=== PATIENT | male | born 1985 | race Caucasian/White ===

== ENCOUNTER 2019-12-19 06:23 | Day surgery (SDC) | payer OTHER ==
[2019-12-18 12:22] LABS: HEMATOCRIT 41.7 % (42.0-54.0); MCH 29.2 pg (26.0-34.0); MCHC 33.6 g/dL (31.0-37.0); MCV 87.1 fL (80.0-100.0); RBC 4.79 10x6/uL (4.20-6.10)
[~2019-12-19] VITALS: Ht 177.8 cm; Wt 113.4 kg
[~2019-12-19 06:23] MED LIST: LOTREL 5-20 MG1 CAP PO
[2019-12-19 06:56] VITALS: BP 143/90; Ht 177.8 cm; Wt 113.4 kg
[2019-12-19] MEDS ORDERED: PERCOCET 10-321 EAC1 PO (09:16)
[2019-12-19] MEDS ORDERED: VISTARIL50 MG PO (09:16)
[2019-12-19] MEDS ORDERED: TORADOL10 MG PO (09:17)
--- NOTE | 2019-12-19 12:30 | NUR ---
1210 IV DC'D. CATHETER TIP INTACT. NO BLEEDING AT SITE. BANDAID APPLIED. PT VOICES UNDERSTANDING OF DISCHARGE INSTRUCTIONS.
--- NOTE | 2019-12-20 08:22 | OP ---
PATIENT NAME: MAN MURGUIA MEDICAL RECORD: [id number] :83 LOCATION:[facility] ADMISSION DATE: SURGEON: IGNACIO BUSTAMANTE DO DATE OF OPERATION: 12/19/2019 PROCEDURE PERFORMED: Left knee arthroscopy with partial medial meniscectomy and left tibial tubercle ossicle removal or excision and patellar tendon repair. PREOPERATIVE DIAGNOSES: Left knee medial meniscal tear and painful Montrose-Schlatter or tibial tubercle ossicle. POSTOPERATIVE DIAGNOSES: Left knee medial meniscal tear and painful Montrose-Schlatter or tibial tubercle ossicle. INDICATIONS: Mr. 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 He was tired of dealing with the pain and wants something done surgically. He got an MRI and a CT. He did have quite a painful ossicle. Upon palpation, it was mobile. We also got an MRI, which showed a partial patellar tendon tear at that site and a medial meniscal tear in the anterior horn of medial meniscus. I informed him we could scope in the anterior horn of the meniscus to see if that cause any of his pain and also at the same time open up the tendon and take out that ossicle and then repair it back down. He would be in an immobilizer for a couple of weeks and then can start in the therapy, but he could weightbear as tolerated. He was aware of the risks including infection, bleeding, re-rupture of the patellar tendon, continued pain, retear of the meniscus, blood clots, and even and he signed the consent. SURGEON: Ignacio Bustamante DO DESCRIPTION OF PROCEDURE: The patient was taken to the operative suite, laid in supine position, given general anesthetic and LMA was placed. He was given 2 grams of Ancef preoperatively. The left lower extremity was then prepped and draped in sterile fashion. Timeout was performed, everyone was in agreeance with the side, site, patient, and procedure. I then performed the knee scope first and started with anterolateral portal, it was made with an 11-blade scalpel. Trocar was then entered into the knee. The suprapatellar pouch was inspected. No loose body was seen in it medial or lateral gutters. The medial knee was then entered in the medial compartment and a medial portal was then established using 18-gauge spinal needle and 11-blade scalpel. The anterior horn of the medial meniscus was then seen to be torn on the very intersection, the white-white area. A shaver was then brought in after the port was established and trimmed out the tear with a shaver. Once return back to a stable point, I inspected the posterior horn and middle portion of the meniscus and no tears were seen and the cartilage was in good repair as well. Same for the ACL was in good repair and then the knee was [id number]. The lateral compartment was entered and the meniscus was not seen to have any tears and there was no cartilage damage on the lateral side either. I then inspected the underneath side of the patella and there was no chondromalacia seen there or the trochlea. Scope was then removed and then I opened over the ossicle, it was on the anterior tibia right at the tubercle, there was a non-infused portion of the roof of the epiphysis there and they had not united as Namita-Schlatter. I then made an incision over it and made careful dissection through the peritenon and then split the patellar tendon and removed the ossicle. I then cleaned up the frayed edges of the tendon and put a 5.5 anchor in with double-sutures and with OPERATIVE REPORT [id number] MAN MURGUIA a horizontal mattress suture repaired it down and tied it down and cut the excess suture. I then closed the peritenon in [id number] fashion with 2-0 Vicryl. The skin was then closed by Vijay Kirkpatrick, certified surgical senior office assistant with 2-0 Vicryl in an inverted interrupted fashion, 4-0 Monocryl ran on the skin and 4-0 Monocryl on the portal sites in an inverted interrupted fashion. He was then dressed with Adaptic, 4 x 4s, ABD, Webril, Aayush wrap, placed in a knee immobilizer, awakened and taken to recovery in stable condition. BLOOD LOSS: Minimal. The tourniquet was inflated prior to starting the ossicle removal and was up for 17 minutes at 350 mmHg. It was let down. There was minimal blood loss. COMPLICATIONS: None. TRANSINT:[id number] Voice Confirmation ID: [id number] DOCUMENT ID: [id number] IGNACIO BUSTAMANTE DO at 0822 CC: [id number] DICTATION DATE: 12/19/19 1025 PICKER TENDER HELPER: 12/19/19 1552 [facility] 12/19/19 [id number] [place] [address]
== END 2019-12-19 12:22 | disposition home or self-care (01) ==
LOC: D.OPS 06:23
PROVIDERS: ATTEND Orthopaedic Surgery
DX: S83.242A Other tear of medial meniscus, current injury, left knee, initial encounter (principal); M92.52 Juvenile osteochondrosis of tibia tubercle; X58.XXXA Exposure to other specified factors, initial encounter; M66.88 Spontaneous rupture of other tendons, other sites